=== PATIENT | female | born 1970 | race African-American/Black ===

== ENCOUNTER 2017-08-13 10:41 | Emergency (ER) | payer OTHER ==
[~2017-08-13] VITALS: Ht 167.6 cm; Wt 52.2 kg
[~2017-08-13 10:41] MED LIST: IBUP-1954 PO
[2017-08-13 11:16] LABS: BASOPHILS # (AUTO) 0.1 K/uL (0.0-8.0); BASOPHILS % (AUTO) 1.6 % (0.0-2.0); CREATININE 0.7 mg/dL (0.6-1.3); EOSINOPHILS # (AUTO) 0.1 K/uL (0.0-0.7); EOSINOPHILS % (AUTO) 1.7 % (0.0-7.0); HEMATOCRIT 37.9 % (37-47); LYMPHOCYTES # (AUTO) 1.3 K/UL (0.8-4.8); LYMPHOCYTES % (AUTO) 33.3 % (20.5-51.5); MEAN CORPUSCULAR HEMOGLOBIN 27.1 UUG (27.0-31.0); MEAN CORPUSCULAR HGB CONC 32 g/dL (32.0-37.0); MEAN CORPUSCULAR VOLUME 85.8 FL (81.0-99.0); MONOCYTES # (AUTO) 0.4 K/UL (0.1-1.30); MONOCYTES % (AUTO) 9.9 % (0.0-11.0); NEUTROPHILS # (AUTO) 2.1 K/UL (1.8-8.9); NEUTROPHILS % (AUTO) 53.5 % (38.5-71.5); PLATELET COUNT (AUTO) 213 K/UL (150-450); POTASSIUM 4.2 mmol/L (3.5-5.1); RED BLOOD CELL COUNT(AUTO) 4.42 MIL/UL (4.2-5.4)
[2017-08-13 11:20] LABS: *BILIRUBIN,URIN NEGATIVE (NEGATIVE); *BLOOD, URINE NEGATIVE (NEGATIVE); *CLARITY,URINE CLEAR (CLEAR); *COLOR,URINE YELLOW (YELLOW); *KETONES,URINE TRACE (NEGATIVE); *PROTEIN,URINE NEGATIVE (NEGATIVE); *UROBILINOGEN,URINE 0.2 E.U./dl (NORMAL); LEUKOCYTE ESTERASE ,URINE NEGATIVE (NEGATIVE); NITRITE, URINE NEGATIVE (NEGATIVE); UGLUCOSE NEGATIVE (NEGATIVE)
[2017-08-13 11:22] LABS: BILIRUBIN,DIRECT 0.1 mg/dL (0.0-0.2); BILIRUBIN,TOTAL 0.5 mg/dL (0.2-1.0); TOTAL PROTEIN, SERUM 7.9 g/dL (6.4-8.2)
[2017-08-13 11:29] LABS: BACTERIA,URINE NONE SEEN /HPF (NONE SEEN); RBC,URINE 0-3 /HPF (0-3); WBC,URINE 0-3 /HPF (0-3)
[2017-08-13 11:30] LABS: MUCUS,URINE FEW /LPF (0-FEW); SQUAMOUS EPITHELIAL CELL,UR FEW /HPF (NONE SEEN)
--- NOTE | 2017-08-13 11:50 | NUR ---
Patient is resting comfortably on gurney with eyes closed, listening on her personal electronic device,NAD
--- NOTE | 2017-08-13 12:44 | NUR ---
Patient discharged to home in stable conditon. Written and verbal after care instructions given to patient with copies of all ER tests results provided as well. Patient verbalizes understanding of instructions. No questions per patient as of discharge time.
== END 2017-08-13 12:46 | disposition home or self-care (01) ==
LOC: ER 10:45
DX: K62.5 Hemorrhage of anus and rectum (principal); G43.909 Migraine, unspecified, not intractable, without status migrainosus; Z90.49 Acquired absence of other specified parts of digestive tract; Z88.2 Allergy status to sulfonamides
CPT/HCPCS: 36415; 83690; 84703; 85025; A4663

== ENCOUNTER 2018-06-04 21:48 | Emergency (ER) | payer OTHER ==
[~2018-06-04] VITALS: Ht 167.6 cm; Wt 59.0 kg
--- NOTE | 2018-06-04 23:17 | NUR ---
DR JUNO MONTAÑO MD AT BEDSIDE FOR MSE.
--- NOTE | 2018-06-04 23:33 | NUR ---
PT REFUSING TO PROVIDE URINE. MD NOTIFIED.
[2018-06-04] MEDS ORDERED: KETOROLAC TROMETHAMINE 30 MG INJ ONE (23:39)
[2018-06-04] MEDS: KETOROLAC TROMETHAMINE 30 MG INJ IM ONE (23:42)
--- NOTE | 2018-06-04 23:47 | NUR ---
PT TAKEN TO RADIOLOGY VIA WHEENCHAIR. NO DISTRESS NOTED.
--- NOTE | 2018-06-05 00:01 | NUR ---
PT BACK IN ROOM FROM RADIOLOGY. NO ACUTE EVENTS.
--- NOTE | 2018-06-05 01:36 | NUR ---
Patient discharged to home in stable conditon. Written and verbal after care instructions given. Patient verbalizes understanding of instructions. PT ambulated from ER w/ teady gait. Denies dizziness, BEAR, N/V, CP, or SOB. No distress noted. Pt took all personal belongings.
[2018-06-05 01:38] VITALS: BP 116/75
== END 2018-06-05 01:39 | disposition home or self-care (01) ==
LOC: ER 21:50
DX: S13.4XXA Sprain of ligaments of cervical spine, initial encounter (principal); Z88.2 Allergy status to sulfonamides; Z90.49 Acquired absence of other specified parts of digestive tract; V49.9XXA Car occupant (driver) (passenger) injured in unspecified traffic accident, initial encounter; Y93.89 Activity, other specified; Y92.410 Unspecified street and highway as the place of occurrence of the external cause; Y99.8 Other external cause status
CPT/HCPCS: 71045; 93005; A4663; J1885

== ENCOUNTER 2018-10-05 17:24 | Emergency (ER) | payer OTHER ==
[~2018-10-05] VITALS: Ht 167.6 cm; Wt 59.0 kg
--- NOTE | 2018-10-05 17:55 | NUR ---
47 years old female with hx of depression start of lexapro walking to er c/o headache x1 day worse today denies blurry vision, no sob no cp, no nausea vomiting.
[2018-10-05 18:56] LABS: *URINE HCG, QUAL NEGATIVE (NEGATIVE)
--- NOTE | 2018-10-05 19:02 | NUR ---
patient went to ct, report endorsed to nurse Vences.
--- NOTE | 2018-10-05 19:07 | NUR ---
Pt back to ER from CT.
--- NOTE | 2018-10-05 19:28 | NUR ---
Patient discharged to home in stable conditon. Written and verbal after care instructions given. Patient verbalizes understanding of instructions. Patient ambulated out of ER with steady gait, no acute signs of distress, VSS, all belongings taken.
[2018-10-05 19:29] VITALS: BP 106/65
== END 2018-10-05 19:30 | disposition home or self-care (01) ==
LOC: ER 17:26
DX: G43.909 Migraine, unspecified, not intractable, without status migrainosus (principal); Z90.49 Acquired absence of other specified parts of digestive tract; Z88.2 Allergy status to sulfonamides; Z79.1 Long term (current) use of non-steroidal anti-inflammatories (NSAID)
CPT/HCPCS: 70450; 84703; A4663

== ENCOUNTER 2021-02-02 12:34 | Emergency (ER) | payer OTHER ==
[~2021-02-02] VITALS: Ht 167.6 cm; Wt 55.8 kg
--- NOTE | 2021-02-02 12:58 | NUR ---
Dr Yu at the bedside for MSE.
--- NOTE | 2021-02-02 13:19 | NUR ---
Patient is breathing well, denies SOB. No stridor noted. She is on continuous O2 and cardiac monitoring. Call light within reach. Xray done. Dr Yu call GI doctor, will call again soon
--- NOTE | 2021-02-02 14:48 | NUR ---
[id number] (time frame) Attempt to call in ENT to ER unsuccessful. I then called [facility] for transfer for higher level of care and was told that there is no ENT at [place] and no ENT will accept this patient at [facility] or [place] for ED to ED transfer. Then I called Dr Bose office (ENT) and they stated they dont take her insurance. Patient stated she is a patient of dr Goyo Antonio. I called his office per Dr Yu request and they stated Dr Antonio is not there today at this time but Dr Cobb said he would see her today after he is done with his patients. Patient was told this but she became inpatient and stated "I just want to leave" and eloped.... She was ambulatory with steady gait.
== END 2021-02-02 14:52 | disposition left against medical advice (07) ==
LOC: ER 12:34
DX: T17.328A Food in larynx causing other injury, initial encounter (principal); K44.9 Diaphragmatic hernia without obstruction or gangrene; F32.9 Major depressive disorder, single episode, unspecified
CPT/HCPCS: 70360; A4663